=== PATIENT | male | born 1970 | race Caucasian/White ===

== ENCOUNTER 2018-12-02 23:32 | Emergency (ER) | payer OTHER ==
[~2018-12-02] VITALS: Ht 180.3 cm; Wt 108.8 kg
[~2018-12-02 23:32] MED LIST: ACET325T14 PO; OMEP10CA4 PO
[2018-12-02 23:37] VITALS: BP 153/89
--- NOTE | 2018-12-03 00:04 | NUR ---
FIRST CONTACT WITH PT. PT STATES FOR THE LAST COUPLE WEEKS, HE'S BEEN HAVING SENSATION OF SAND IN EYES. PT REPORTS THAT HIS EYES HAVE STARTED BURNING REALLY BAD SINCE DROPS THAT WERE GIVEN BY OPTHALMOLOGIST. PT'S AOX4. RESPS EVEN AND UNLABORED.
--- NOTE | 2018-12-03 01:25 | NUR ---
PT GIVEN DC INSTRUCTIONS. PT AMB TO DC WITH STEADY GAIT. PT'S AOX4. RESPS EVEN AND UNLABORED. NO ACUTE DISTRESS AT DC.
== END 2018-12-03 01:26 | disposition home or self-care (01) ==
LOC: ED 12-03 01:02
DX: H10.13 Acute atopic conjunctivitis, bilateral (principal); H57.13 Ocular pain, bilateral
CPT/HCPCS: 99283

== ENCOUNTER 2018-12-10 01:35 | Emergency (ER) | payer OTHER ==
[~2018-12-10] VITALS: Ht 180.3 cm; Wt 109.0 kg
[2018-12-10 01:38] VITALS: BP 145/89
== END 2018-12-10 02:14 | disposition home or self-care (01) ==
LOC: ED 02:06
DX: H10.023 Other mucopurulent conjunctivitis, bilateral (principal); K21.9 Gastro-esophageal reflux disease without esophagitis
CPT/HCPCS: 99283

== ENCOUNTER 2019-03-22 18:41 | Emergency (ER) | payer OTHER ==
[~2019-03-22] VITALS: Ht 180.3 cm; Wt 107.5 kg
[2019-03-22 18:44] VITALS: BP 141/81
== END 2019-03-22 20:17 | disposition home or self-care (01) ==
LOC: ED 19:25
DX: N48.5 Ulcer of penis (principal); K21.9 Gastro-esophageal reflux disease without esophagitis
CPT/HCPCS: 36415; 86592; 96372; 99283; J0561; J0696

== ENCOUNTER 2020-03-13 06:26 | Day surgery (SDC) | payer OTHER ==
[~2020-03-13] VITALS: Ht 180.3 cm; Wt 110.0 kg
[~2020-03-13 06:26] MED LIST changes: -OMEP10CA4 PO; +OMEP10CA5 PO; +PANT40TA5 PO; +QUET50TA PO
[2020-03-13] MEDS ORDERED: LACTATED RINGERS 1,000 ML IV SCH (07:12)
[2020-03-13 07:13] VITALS: BP 133/86
[2020-03-13 07:14] VITALS: BP 133/86
[2020-03-13] MEDS ORDERED: CHLORHEXIDINE 15 ML UDC MM ONE (07:30)
[2020-03-13] MEDS ORDERED: CHLORHEXIDINE 15 ML UDC ONE (07:34)
[2020-03-13] MEDS ORDERED: CIPROFLOXACIN/HYDROCORTISONE EAR SUSP 0.2-1%, 10ML ONE (07:44)
[2020-03-13] MEDS ORDERED: FENTANYL PF 100 MCG/2ML ONE (07:54)
[2020-03-13] MEDS ORDERED: ACETAMINOPHEN 325 MG TABLET PO PRN (08:30)
[2020-03-13] MEDS ORDERED: OXYcodone 5 MG/5 ML ORAL.SOL UDC PO PRN (08:30)
[2020-03-13] MEDS ORDERED: ONDANSETRON 2MG/ML, 2ML IVPush PRN (08:30)
[2020-03-13] MEDS ORDERED: LIDOCAINE-MPF 2% ,5ML ONE (08:42)
[2020-03-13] MEDS ORDERED: PROPOFOL 10 MG/ML, 20ML ONE (08:42)
== END 2020-03-13 09:05 | disposition home or self-care (01) ==
LOC: OUT 06:26
PROVIDERS: ATTEND Otolaryngology
DX: H69.81 Other specified disorders of Eustachian tube, right ear (principal); H73.891 Other specified disorders of tympanic membrane, right ear; K21.9 Gastro-esophageal reflux disease without esophagitis
CPT/HCPCS: 69436; J2704; J3010; L8613